=== PATIENT | female | born 1985 | race Caucasian/White ===

== ENCOUNTER 2024-04-22 08:40 | Emergency (ER) | payer OTHER, SELFPAY ==
[2024-04-22 08:50] VITALS: BP 143/75
--- NOTE | 2024-04-22 08:58 | ED.GENMED ---
History of Present Illness
General
Chief Complaint: Abdominal Symptoms
Time Seen by Provider: 04/22/24 08:58
History of Present Illness
History of Present Illness:
TIME OF INITIAL ENCOUNTER: 9:05 AM
HPI: 4 days ago, the patient had some mild cramping in the left lower quadrant. 2 days ago the symptoms nearly completely resolved. Yesterday evening the symptoms recurred and were more severe. She had some difficulty with urination recently.
She went to urgent care this morning where they found blood in her urine and was referred here for further evaluation. She reports some at least questionable chills. She has an IUD. She denies chance of . She reports family member with
history of diverticular disease
EXAM:
GENERAL: Well appearing but appears mildly uncomfortable, elevated BMI
HEENT: Moist oral mucosa
CARDIOVASCULAR: No murmurs, normal heart rate, regular rhythm, No chest wall tenderness
PULMONARY: No respiratory distress, breath sounds are clear and equal
ABDOMEN: Soft with no peritoneal signs, minimal left-sided tenderness, no CVA tenderness
NEUROLOGIC: Excellent strength all extremities, no coordination deficits
PSYCHIATRIC: Appropriate mental status, normal insight and judgement
EXTREMITIES: Nontender, no edema, moves all extremities equally
SKIN: No rash, no lesions
NUMBER AND COMPLEXITY OF PROBLEMS ADDRESSED AT THE ENCOUNTER
� Chronic conditions affecting care: No history of ovarian cysts
� Acute Exacerbation and/or Progression of Chronic Illness: Is an acute problem
� Differential Diagnosis includes: Ureteral stone, UTI, pyelonephritis, ovarian cyst, diverticulitis
AMOUNT AND/OR COMPLEXITY OF DATA TO BE REVIEWED AND ANALYZED
� I performed an independent evaluation of and my interpretation is:
EKG:
CT: CT shows a distal 4 mm stone left ureter
X-rays:
Laboratory Studies: White count normal, chemistries unremarkable, hematuria noted with no evidence of
Other:
� Review of other/old records: I reviewed records, the patient had a home sleep apnea study which was unremarkable
� Clinical information was obtained by an independent historian: None needed
� Prescriptions/Medications Considered but not given: Consider Flomax however there apparently is a cross-reactivity with her prior med that she reacted to.
� Further testing considered but not performed:
RISK OF COMPLICATIONS AND/OR MORBIDITY OR MORTALITY OF PATIENT MANAGEMENT
� Social determinants of health affecting care: Lives at home
� Discussion with other providers:
� Escalation of care including admission/observation vs risk of discharge considered: The patient is given IV fluids, Toradol, and Zofran. CT imaging obtained.
ANY OTHER UPDATES:
12:05 PM: The patient appears fairly comfortable on reassessment. Recommend urology follow-up as well as NSAIDs.
Phy Exam
Physical Exam
Physical Exam:
See HPI
Sepsis
Sepsis Screening
Sepsis Assessment: Sepsis Ruled Out
Sepsis Screen
Sepsis Screen: Sepsis Ruled Out
Date: 04/22/24
Time: 12:06
Course
Orders/Labs/Results
Orders:
Orders
04/22/24 09:07
0.9% Sodium Chloride 1000 ml [Nss] 1,000 ml IV BOLUS
Ketorolac [Toradol] 15 mg IV NOW STA
Ondansetron Injectable [Zofran] 4 mg IV NOW STA
Test Result ONCE
04/22/24 09:08
CT Abd/pel Without Iv Or Oral Urgent
Comment:
Reason For Exam: LLQ pain, dysuria
04/22/24 09:19
Complete Blood Count/With Diff Urgent
Comprehensive Metabolic Panel Urgent
HCG, Urine Qualitative Screen Urgent
Date Specimen was Collected: 04/22/24
Time Specimen was Collected: 09:11
Urinalysis Reflex To Culture Urgent
Date Specimen was Collected: 04/22/24
Time Specimen was Collected: 09:11
Urine Microscopic Reflex Cult Urgent
Urine Culture Urgent
WIL Source: U
Specimen Description:
Date Specimen was Collected: 04/22/24
Time Specimen was Collected: 09:11
Abnormal Lab Results
04/22/24
09:19
Absolute Neuts (auto) 7.2 H 10^3/uL
(1.4-6.5)
Absolute Monos (auto) 0.7 H 10^3/uL
(0.1-0.6)
Lymphocytes % 16.5 L %
(20.5-51.1)
BUN 22 H mg/dl
(7-17)
Glucose 104 H mg/dl
(70-99)
Ur Occult Blood Reflex 3+ A
(Negative)
Leukocyte Esterase Rfl Trace A
(Negative)
Urine RBC 26-30 A /HPF
(0-2)
Urine Bacteria (Reflex) Moderate A
(Negative)
04/22/24 09:19
04/22/24 09:19
Vital Signs
Initial and Last Documented VS:
Initial Vital Signs
Temp Pulse Resp BP Pulse Ox
98.2 F 50 16 143/75 98
04/22/24 08:50 04/22/24 08:50 04/22/24 08:50 04/22/24 08:50 04/22/24 08:50
Last Documented Vital Signs
Temp Pulse Resp BP Pulse Ox
98.2 F 58 18 143/76 100
04/22/24 08:50 04/22/24 11:01 04/22/24 11:01 04/22/24 11:01 04/22/24 11:01
*Critical Care Note
Total Time (30-74mins, 75-104mins- exclusive of procedures): Not Applicable
ED Attending Note
-
Portions of this chart may have been created with voice recognition software.� Occasional wrong word or��sound alike� substitutions may have occurred due to the inherent limitations of voice recognition software.
Discharge Plan
Departure
Patient Disposition: Home (Routine Discharge)
Date of Disposition: 04/22/24
Time of Disposition: 12:02
Patient with high blood pressure during this ER visit?: Yes
Discharge Problem:
Colic, ureteral
Prescriptions:
New
oxycodone-acetaminophen [Percocet] 5-325 mg tablet
1 - 2 tab PO Q6HPRN PRN (Reason: pain) Qty: 14 0RF
ondansetron HCl 4 mg tablet
4 mg PO Q6H PRN (Reason: nausea and vomiting) Qty: 14 0RF
Referrals:
Mindy Holloway PA [Family Provider] -
Naeem Nicole Jr., MD [Active] - Follow up in 2-3 days
Activity Restrictions/Additional Instructions:
Please follow-up with urology such as Dr. Nicole. I recommend 3-4 zoci-crl-nlenzqg ibuprofen (Motrin) every 8 hours with food for a few days. Return here if worse. If you take Percocet, I recommend taking some the like MiraLAX to prevent
constipation. Your white blood cell count is normal. Your kidney function is normal, the urinalysis shows blood but no sign of infection. Is very common to have blood in the urine when there is a kidney stone.
Interventions
Interventions:
*Risk Screen - Suicide Last Done: 04/22/24 08:50
*General Assessment Last Done: 04/22/24 09:53
*Neglect/Abuse Screening Last Done: 04/22/24 08:50
*ED COVID-19 Vaccine History Last Done: 04/22/24 09:53
HE-Umtsnv-Wtdncbrekc Assessment Last Done: 04/22/24 09:53
Discharge Date and Time
Print Language: WOLOF
[2024-04-22 09:27] LABS: Urine Albumin Trace (Neg - Trace); Urine Bilirubin Negative (Negative); Urine Character Clear (Clear); Urine Color Yellow; Urine Glucose Negative (Negative); Urine Ketone Negative (Negative); Urine Leukocyte Trace (Negative); Urine Nitrite Negative (Negative); Urine Occult Blood 3+ (Negative); Urine Specific Gravity 1.025 (<1.030); Urine Urobilinogen Negative (Neg - 1+)
[2024-04-22 09:29] LABS: % Basophils 0.2 % (0-2); % Eosinophils 0.6 % (0-6); % Immature Granulocytes 0.4 % (0-0.5); % Lymphocytes 16.5 % (20.5-51.1); % Monocytes 7.4 % (1.7-9.3); % Neutrophils 74.9 % (42.2-75.2); Absolute Eosinophils 0.1 10^3/uL (0-0.7); Absolute Lymphocytes 1.6 10^3/uL (1.2-3.4); Absolute Monocytes 0.7 10^3/uL (0.1-0.6); Absolute Neutrophils 7.2 10^3/uL (1.4-6.5); Hematocrit 40.2 % (37.0-47.0); Hemoglobin 13.9 g/dL (12.0-16.0); Mean Corp Hgb Conc. 34.6 g/dL (33.0-37.0); Mean Corpuscular Hgb 30.3 pg (27.0-31.0); Mean Corpuscular Volume 87.8 fL (81.0-99.0); Mean Platelet Volume 9.8 fL (7.4-10.4); Nucleated Red Blood Cells % 0 %; Platelet Count 270 10^3/uL (130-400); Red Blood Cell Count 4.58 10^6/uL (4.20-5.40); Red Cell Dist. Width 11.9 % (11.5-14.5); White Blood Cell Count 9.6 10^3/uL (4.8-10.8)
[2024-04-22] MEDS: NSS 1000 IV (09:36)
[2024-04-22] MEDS: ZOFRAN 4 MG IV (09:37)
[2024-04-22] MEDS: TORADOL 15 MG IV (09:37)
[2024-04-22 09:41] LABS: HCG, Urine Qualitative Screen Negative
[2024-04-22 09:46] LABS: ALT (SGPT) 20 U/L (0-35); AST (SGOT) 23 U/L (14-36); Albumin 4.7 g/dl (3.5-5.0); Alkaline Phosphatase 57 U/L (38-126); Blood Urea Nitrogen 22 mg/dl (7-17); Calcium 9.6 mg/dl (8.4-10.2); Carbon Dioxide 23 mmol/L (22-30); Chloride 104 mmol/L (98-107); Glucose 104 mg/dl (70-99); Potassium 4.5 mmol/L (3.5-5.1); Sodium 140 mmol/L (135-145); Total Bilirubin 0.8 mg/dl (0.2-1.3); Total Protein 7.1 g/dl (6.3-8.2); eGFR > 60.00
[2024-04-22 09:49] LABS: Urine Squamous Cell >30 /LPF (Few)
[2024-04-22 09:50] LABS: Urine Bacteria Moderate (Negative); Urine Red Blood Cell 26-30 /HPF (0-2)
[2024-04-22 11:01] VITALS: BP 143/76
[2024-04-22 12:10] VITALS: BP 120/76
== END 2024-04-22 12:15 | disposition home or self-care (01) ==
LOC: EMR 08:40
PROVIDERS: EMERGENCY PHYSICIAN Emergency Medicine; FAMILY PHYSICIAN Physician Assistant Medical
DX: N13.2 Hydronephrosis with renal and ureteral calculous obstruction (principal); R03.0 Elevated blood-pressure reading, without diagnosis of hypertension
CPT/HCPCS: 99284; 96374; 96375; 96361; 74176; 80053; 81003; 81015; 81025; 85025; 87086